=== PATIENT | female | born 1995 | race Asian ===

== ENCOUNTER 2016-09-13 21:47 | Emergency (ER) | payer MEDICAID ==
[2016-09-13 23:03] VITALS: BP 127/87
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
== END 2016-09-13 23:59 | disposition home or self-care (01) ==
LOC: JP.ED 21:47
DX: S29.012A Strain of muscle and tendon of back wall of thorax, initial encounter (principal); M79.1 Myalgia; F17.210 Nicotine dependence, cigarettes, uncomplicated; Z88.1 Allergy status to other antibiotic agents; V89.2XXA Person injured in unspecified motor-vehicle accident, traffic, initial encounter
CPT/HCPCS: 99283